=== PATIENT | male | born 1970 | race Caucasian/White ===

== ENCOUNTER 2016-03-19 16:59 | Inpatient (IN) | payer BC ==
[~2016-03-19] VITALS: Ht 188 cm; Wt 147.1 kg
[2016-03-19] MEDS ORDERED: SALINE FLUSH 10 ML FLUSH PRN (17:20)
[2016-03-19] MEDS ORDERED: PHARMACY TO DOSE IV SCH ×2 (17:20)
[2016-03-19] MEDS ORDERED: ONDANSETRON 4 MG VIAL IV PUSH PRN (17:20)
[2016-03-19] MEDS ORDERED: SODIUM CHLORIDE 0.9% 1,000 ML IV ONE (17:20)
[2016-03-19] MEDS ORDERED: **NOTE TO NURSE XX SCH (17:55)
[2016-03-19 18:00] VITALS: BMI 41.2
[2016-03-19 18:25] VITALS: BP_SYST 107; BP_SYST 108; RESP 20; TEMP 98.4
[2016-03-19] MEDS ORDERED: Flu Vaccine Quadrivalent 60 MCG/0.5 ML IM.VACC ONE (19:25)
[2016-03-19] MEDS ORDERED: SODIUM CHLORIDE 0.9% 1,000 ML IV SCH (19:25)
[2016-03-19] MEDS ORDERED: DEXTROSE 50% SYRINGE 50 ML IV PRN (19:25)
[2016-03-19] MEDS ORDERED: PNEUMO VAC 25 MCG/0.5 ML VL IM.VACC ONE (19:25)
[2016-03-19 19:30] VITALS: BP_SYST 122; RESP 18; TEMP 98.3
[2016-03-19] MEDS ORDERED: NEB-ALBUTEROL 2.5 MG/3 ML INH PRN (19:30)
[2016-03-19] MEDS: CEFTRIAXONE 2 GM in SODIUM CHLORIDE 0.9% 50 ML IV SCH (19:33)
[2016-03-19] MEDS: SALINE FLUSH 10 ML FLUSH SCH (20:00)
[2016-03-19] MEDS: AZITHROMYCIN 500 MG in SODIUM CHLORIDE 0.9% 250 ML IV SCH (20:23)
[2016-03-19] MEDS: INSULIN DRIP 1 UNIT/ML 100 ML IV SCH (20:24)
[2016-03-19] MEDS: FLUCONAZOLE 100 MG TAB PO SCH (20:31)
[2016-03-19] MEDS: DOCUSATE SOD 100 MG CAP PO SCH (20:31)
[2016-03-19] MEDS: SODIUM CHLORIDE 0.9% FLUSH BAG 500 ML IV SCH (21:04)
[2016-03-19 23:52] VITALS: BP_SYST 110; RESP 18; TEMP 97.5
[2016-03-20] VITALS (9 sets, daily range): BP systolic 108–129; RESP 18–24; TEMP 96.7–99.2
[2016-03-20] MEDS ORDERED: MISSING DOSE XX ONE ×2 (02:50→09:35)
[2016-03-20] MEDS: INSULIN DRIP 1 UNIT/ML 100 ML IV SCH (03:45)
[2016-03-20] MEDS ORDERED: DEXTROSE 5% SALINE 0.45% 1,000 ML IV SCH (04:45)
[2016-03-20] MEDS: DUONEB INH SCH ×3 (05:34→17:37)
[2016-03-20] MEDS: SALINE FLUSH 10 ML FLUSH SCH ×2 (09:19→20:37)
[2016-03-20] MEDS: FLUCONAZOLE 100 MG TAB PO SCH (09:19)
[2016-03-20] MEDS: CEFTRIAXONE 2 GM in SODIUM CHLORIDE 0.9% 50 ML IV SCH (09:20)
[2016-03-20] MEDS ORDERED: GLUCAGON 1 MG VIAL IM PRN (09:50)
[2016-03-20] MEDS: AZITHROMYCIN 500 MG in SODIUM CHLORIDE 0.9% 250 ML IV SCH (09:54)
[2016-03-20] MEDS: LEVEMIR INSULIN SUBQ SCH ×2 (11:46→20:38)
[2016-03-20] MEDS: SODIUM CHLORIDE 0.9% 1,000 ML IV SCH ×2 (11:49→21:01)
[2016-03-20] MEDS: DOCUSATE SOD 100 MG CAP PO SCH (20:37)
[2016-03-21] VITALS (9 sets, daily range): BP systolic 111–148; RESP 19–24; TEMP 98.8–102.5
[2016-03-21] MEDS: SODIUM CHLORIDE 0.9% FLUSH BAG 500 ML IV SCH (06:00)
[2016-03-21] MEDS: DUONEB INH SCH ×3 (06:59→19:25)
[2016-03-21] MEDS: SALINE FLUSH 10 ML FLUSH SCH ×2 (08:00→20:00)
[2016-03-21] MEDS: ACETAMINOPHEN 325 MG TAB PO PRN ×3 (08:06→17:03)
[2016-03-21] MEDS: CEFTRIAXONE 2 GM in SODIUM CHLORIDE 0.9% 50 ML IV SCH (08:29)
[2016-03-21] MEDS: FLUCONAZOLE 100 MG TAB PO SCH (08:29)
[2016-03-21] MEDS: LEVEMIR INSULIN SUBQ SCH ×3 (08:30→20:54)
[2016-03-21] MEDS ORDERED: PHARMACY TO DOSE ZOSYN IV SCH (09:00)
[2016-03-21] MEDS: AZITHROMYCIN 500 MG in SODIUM CHLORIDE 0.9% 250 ML IV SCH (09:51)
[2016-03-21] MEDS: PIPERACIL/TAZO 3.375GM/50ML 50 ML IV SCH ×2 (11:21→16:59)
[2016-03-21] MEDS: SODIUM CHLORIDE 0.9% 1,000 ML IV SCH (16:56)
[2016-03-21] MEDS: DOCUSATE SOD 100 MG CAP PO SCH (20:54)
[2016-03-22] MEDS: PIPERACIL/TAZO 3.375GM/50ML 50 ML IV SCH ×4 (00:50→17:20)
[2016-03-22] MEDS: ACETAMINOPHEN 325 MG TAB PO PRN ×3 (00:55→15:41)
[2016-03-22 03:12] VITALS: BP_SYST 109; RESP 18; TEMP 99.7
[2016-03-22] MEDS: SODIUM CHLORIDE 0.9% 1,000 ML IV SCH (04:07)
[2016-03-22] MEDS: SODIUM CHLORIDE 0.9% FLUSH BAG 500 ML IV SCH (06:00)
[2016-03-22 07:37] VITALS: BP_SYST 128; RESP 20; TEMP 101
[2016-03-22] MEDS: DUONEB INH SCH (07:58)
[2016-03-22] MEDS: SALINE FLUSH 10 ML FLUSH SCH ×2 (08:00→20:48)
[2016-03-22] MEDS: AZITHROMYCIN 500 MG in SODIUM CHLORIDE 0.9% 250 ML IV SCH (08:14)
[2016-03-22] MEDS: FLUCONAZOLE 100 MG TAB PO SCH (08:14)
[2016-03-22] MEDS: LEVEMIR INSULIN SUBQ SCH ×2 (08:15→20:48)
[2016-03-22 11:06] VITALS: BP_SYST 110; RESP 18; TEMP 98.4
[2016-03-22] MEDS: OMNIPAQUE 240 MG/ML, 50 ML PO SCH ×2 (13:52→17:20)
[2016-03-22 15:33] VITALS: BP_SYST 120; RESP 20; TEMP 102.6
[2016-03-22] MEDS ORDERED: PHARMACY TO DOSE VANCOMYCIN IV SCH (16:00)
[2016-03-22] MEDS ORDERED: VANCOMYCIN 2,500 MG in SODIUM CHLORIDE 0.9% 500 ML IV ONE (16:30)
[2016-03-22] MEDS ORDERED: OPTIRAY 350 100 ML VIAL HMH IV ONE (18:10)
[2016-03-22 19:35] VITALS: BP_SYST 117; RESP 20; TEMP 100
[2016-03-22] MEDS: DOCUSATE SOD 100 MG CAP PO SCH (20:48)
[2016-03-22 23:34] VITALS: BP_SYST 112; RESP 18; TEMP 99.6
[2016-03-23] MEDS: PIPERACIL/TAZO 3.375GM/50ML 50 ML IV SCH ×4 (00:27→20:02)
[2016-03-23 03:01] VITALS: BP_SYST 116; RESP 20; TEMP 100.5
[2016-03-23] MEDS: ACETAMINOPHEN 325 MG TAB PO PRN ×2 (03:47→14:01)
[2016-03-23] MEDS ORDERED: VANCOMYCIN 2,000 MG in SODIUM CHLORIDE 0.9% 500 ML IV SCH (05:00)
[2016-03-23] MEDS: SODIUM CHLORIDE 0.9% FLUSH BAG 500 ML IV SCH (06:00)
[2016-03-23 07:23] VITALS: BP_SYST 103; RESP 20; TEMP 97.6
[2016-03-23] MEDS: LEVEMIR INSULIN SUBQ SCH ×2 (09:31→20:45)
[2016-03-23] MEDS: BENZONATATE 100 MG CAP PO SCH ×3 (09:31→20:02)
[2016-03-23] MEDS: FLUCONAZOLE 100 MG TAB PO SCH (09:31)
[2016-03-23] MEDS: SALINE FLUSH 10 ML FLUSH SCH ×2 (09:31→20:00)
[2016-03-23 11:35] VITALS: BP_SYST 136; RESP 18; TEMP 99.8
[2016-03-23] MEDS: VANCOMYCIN 1,750 MG in SODIUM CHLORIDE 0.9% 500 ML IV SCH (17:09)
[2016-03-23 19:35] VITALS: BP_SYST 122; RESP 18; TEMP 97.5
[2016-03-23] MEDS: DOCUSATE SOD 100 MG CAP PO SCH (20:03)
[2016-03-23 23:22] VITALS: BP_SYST 123; RESP 20; TEMP 97.5
[2016-03-24] VITALS (9 sets, daily range): BP systolic 120–135; RESP 16–20; TEMP 97.4–99.2
[2016-03-24] MEDS: PIPERACIL/TAZO 3.375GM/50ML 50 ML IV SCH ×3 (00:51→12:09)
[2016-03-24] MEDS: VANCOMYCIN 1,750 MG in SODIUM CHLORIDE 0.9% 500 ML IV SCH ×2 (01:49→08:06)
[2016-03-24] MEDS: SODIUM CHLORIDE 0.9% FLUSH BAG 500 ML IV SCH (06:24)
[2016-03-24] MEDS: SALINE FLUSH 10 ML FLUSH SCH ×2 (07:22→20:15)
[2016-03-24] MEDS: BENZONATATE 100 MG CAP PO SCH ×3 (08:05→20:15)
[2016-03-24] MEDS: FLUCONAZOLE 100 MG TAB PO SCH (08:05)
[2016-03-24] MEDS: LEVEMIR INSULIN SUBQ SCH ×2 (08:06→20:16)
[2016-03-24] MEDS ORDERED: KCL CR 10 MEQ CAP PO ONE (13:15)
[2016-03-24] MEDS: LEVOFLOXACIN 750 MG/150 ML 150 ML IV SCH (14:05)
[2016-03-24] MEDS: NYSTATIN 500,000 UNITS/5 ML SUSP SWISH.SWAL SCH ×3 (14:22→20:15)
[2016-03-24] MEDS: DOCUSATE SOD 100 MG CAP PO SCH (19:47)
[2016-03-25] VITALS (8 sets, daily range): BP systolic 127–143; RESP 20; TEMP 97.2–97.5; BMI 41.6
[2016-03-25] MEDS: SODIUM CHLORIDE 0.9% FLUSH BAG 500 ML IV SCH (05:02)
[2016-03-25] MEDS: FLUCONAZOLE 100 MG TAB PO SCH (09:00)
[2016-03-25] MEDS: BENZONATATE 100 MG CAP PO SCH ×2 (09:00→16:00)
[2016-03-25] MEDS: LEVEMIR INSULIN SUBQ SCH (09:01)
[2016-03-25] MEDS: SALINE FLUSH 10 ML FLUSH SCH (09:01)
[2016-03-25] MEDS: LEVOFLOXACIN 750 MG/150 ML 150 ML IV SCH (09:01)
[2016-03-25] MEDS: NYSTATIN 500,000 UNITS/5 ML SUSP SWISH.SWAL SCH ×2 (09:02→12:07)
[2016-03-25] MEDS ORDERED: MONTELUKAST 10 MG TAB PO SCH (21:00)
[2016-03-26] MEDS ORDERED: LEVOFLOXACIN 750 MG TAB PO SCH (09:00)
== END 2016-03-25 16:39 | disposition home or self-care (01) | DRG 871 ==
LOC: ENRESERVDT → ENRESERVTM → ENPENDDIS 17:27 → PCU2 17:27 → 3NT 03-21 10:57
PROVIDERS: ADMIT Internal Medicine; ATTEND Internal Medicine
CPT/HCPCS: 71020; 71250; 74160; 80048; 80053; 80202; 82784; 82785; 82947; 83036; 83605; 83690; 83735; 85007; 85025; 85027; 85610; 87040; 87071; 87205; 87278; 87299; 87493; 87804; 94640; 94799; 99223; 99232; 99233